=== PATIENT | female | born 1955 | race Caucasian/White ===

== ENCOUNTER → 2019-10-13 09:27 | Outpatient (CLI) | payer MEDICARE, BC, SELFPAY ==
[2019-10-13 11:02] LABS: Thyroid Stimulating Hormone 0.789 uIU/mL (0.47-4.68)
== END ==
PROVIDERS: PCP Internal Medicine; Referring Provider Internal Medicine; Visit Provider Internal Medicine
DX: E03.9 Hypothyroidism, unspecified (principal)
CPT/HCPCS: 36415; 84443